=== PATIENT | female | born 1975 | race Caucasian/White ===

== ENCOUNTER → 2020-04-05 | Outpatient (CLI) | payer OTHER ==
[~2020-04-05] MED LIST: EFFEXOR 5050 MG/1 T1; MEDROLDOSEPACK PO; PEPCID20 MG PO; ZPAK PO
== END ==
LOC: LAB 15:16
PROVIDERS: ATTEND Family Medicine
DX: Z20.828 Contact with and (suspected) exposure to other viral communicable diseases (principal)